=== PATIENT | male | born 1995 | race Caucasian/White ===

== ENCOUNTER 2019-04-29 08:29 | Emergency (ER) | payer SELFPAY ==
--- NOTE | 2019-04-29 08:32 | W.ED.GENAD ---
Discharge Plan Disposition Patient Disposition: HOME Condition: Good Discharge Details Chief Complaint: EyeProblem Clinical Impression: Foreign body in eye, Abrasion, corneal Primary Care Provider: Raz Navas ED Provider: Marisol Camara Home Meds and New Rx's Prescriptions: Continued ibuprofen 600 MG tablet 600 mg PO Q6H PRN (Reason: Pain) Qty: 15 RF: 0 Discharge Instructions Instructions: Erythromycin (Into the eye), Eye Foreign Body (ED) Additional Instructions: Continue with the erythromycin ointment as directed by nursing staff. Apply 1/2 inch to the right eye 4 times daily for the next 5 days. Please contact hooker laster, may try [facility] , so that you may be reevaluated in the next few days. We will send our notes to them as well. If you develop eye pain, fevers/chills, change in vision, discharge or other new/worsening symptoms please seek care urgently once again. Tetanus updated today. Referrals: Raz Navas [Primary Care Provider] - Medical Decision Making Patient is 23-year-old male presents today with chief complaint of foreign body of the right eye. 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 He reports that he immediately flushed the eye and the foreign body sensation did resolve. States that overall his pain is much improved. States that he has a mild achiness at this time. Denies any visual changes. Unknown tetanus status, patient believes the last 2 years. Does not wear any corrective lenses. Otherwise healthy. On exam, patient has some mild conjunctival injection. He appears nontoxic. Extraocular movements are intact. I do not see any abnormalities on eversion of the eyelid. Patient was numbed with tetracaine which did alleviate all of his symptoms, fluorescein was used for slit-lamp evaluation. Small area of uptake was noted at the 3 o'clock position. No foreign body was noted. Patient will be placed on erythromycin ointment. Advised to follow-up with hooker laster, and appointment was made for tomorrow morning with [facility]. He was given strict return precautions. Is been over 10 years since his last tetanus, will update this today. All of his questions and concerns were addressed and he is in agreement this plan HPI General Mode of arrival: ambulatory. Date/Time Provider Initiated Documentation: 04/29/19 08:32. Limitations to Documentation: no limitations. Information obtained by: patient and RN notes reviewed. History of Present Illness 23 year old M presents to the emergency department with the chief complaint of right eye FB, described as mild, Quality is described as aching, and is localized to the eyes (right). Patient reports no radiation. Patient started experiencing this minute(s) and it has been constant. other things that improve symptom(s), (washed immediately which relieved FB sensation) No exacerbating factors reported . Patient notes no other symptoms.. Patient did receive the following treatments prior to arrival, other (eye wash station) Related Data Home Medications Medication Instructions Recorded Confirmed ibuprofen 600 mg PO Q6H PRN #15 tablet 03/31/18 04/29/19 Previous Rx's Medication Instructions Recorded ibuprofen 600 mg PO Q6H PRN #15 tablet 03/31/18 Allergies Allergy/AdvReac Type Severity Reaction Status Date / Time No Known Allergies Allergy Unverified 04/29/19 08:38 Review of Systems Constitutional Reports as per HPI, Denies chills, Denies fatigue, Denies fever(s) and Denies headache(s) Eyes Reports as per HPI ENT Denies headache(s) Cardiovascular Reports as per HPI, Denies chest pain and Denies lightheadedness Respiratory Denies cough Integumentary/Breasts Reports as per HPI, Denies rash, Denies skin pain and Denies skin swelling Neurologic Denies headache(s) and Denies radicular pain Endocrine Denies fatigue [facility] Social History Smoking/Tobacco Use Status: Current every day Drug use: Never Do you feel safe in your relationship?: Yes Exam Const General: cooperative, healthy appearing, comfortable, no acute distress, well developed and well groomed Nutritional Appearance: average body habitus and well nourished Orientation: alert, awake and oriented x3 HENMT Head: normal to inspection, normocephalic and atraumatic Ears: hearing grossly normal bilaterally and external ears normal General nose exam: external nose normal and nares normal Face and sinus: normal facial exam and face symmetric Mouth: oral mucosae normal, lip normal and moist mucous membranes Eyes Visual Flanagan: normal visual flanagan by confrontation Alignment and Position: alignment normal Periorbital: periorbital findings normal Eyelids: eyelids normal Conjunctivae: conjunctival abnormality right conjunctival injection diffuse (mild) Cornea: corneas normal Pupils: PERRL and normal by confrontation EOM: EOM intact bilaterally Direct ophthalmoscopy: normal light reflex Resp Effort & Inspection: normal respiratory effort, able to speak in complete sentences and no respiratory distress Skin General skin exam: no rashes or lesions noted Neuro General: alert, awake and oriented x3 Cranial Nerves: CN's II-XI intact bilaterally Cognition: normal cognition Speech: speech normal Gait: normal gait Psych Appearance: grossly normal and well kempt Mental Status: mental status grossly normal Speech and Movement: speech and movement normal
[2019-04-29 08:35] VITALS: BP 106/83; PULSE 92; RESP 16; TEMP 36.6; O2SAT 98
[2019-04-29] MEDS: Fluorescein STRIPS 100/BOX 1 MG (09:00)
[2019-04-29] MEDS: Tetracaine 0.5% 4 ML BTL (09:00)
[2019-04-29] MEDS: Erythromycin Ophth Oint 3.5 GM TUBE OP (09:24)
--- NOTE | 2019-04-29 09:30 | NUR.NOTE ---
Nursing Note: Appt made for patient with [facility] for April 30 @ 3532. Stacie Garcia.
== END 2019-04-29 09:29 | disposition home or self-care (01) ==
PROVIDERS: Emergency Provider Physician Assistant; PCP Specialist/Technologist Athletic Trainer
DX: S05.01XA Injury of conjunctiva and corneal abrasion without foreign body, right eye, initial encounter (principal); T15.91XA Foreign body on external eye, part unspecified, right eye, initial encounter; Y99.0 Civilian activity done for income or pay
CPT/HCPCS: 90471; 99284; 99283

== ENCOUNTER 2019-11-01 17:15 | Outpatient (REF) | payer BC, SELFPAY ==
[2019-11-01 22:21] LABS: TSH 2.62 uIU/mL (0.36-3.74)
[2019-11-01 22:36] LABS: Vitamin D 25 Total 17.9 ng/ml (30-100)
== END 2019-11-01 17:35 ==
LOC: NCHCN 17:15
PROVIDERS: PCP Specialist/Technologist Athletic Trainer; Visit Provider Nurse Practitioner Family
DX: F41.9 Anxiety disorder, unspecified (principal)
CPT/HCPCS: 82306; 84443

== ENCOUNTER 2021-10-17 10:33 | Emergency (ER) | payer OTHER, SELFPAY ==
[2021-10-17 10:37] VITALS: BP 133/72; PULSE 79; RESP 16; TEMP 36.2; O2SAT 98
--- NOTE | 2021-10-17 10:43 | W.ED.GENAD ---
Discharge Plan Disposition Patient Disposition: HOME Condition: Improving Discharge Details Clinical Impression: Laceration of thumb Primary Care Provider: Raz Navas ED Provider: Angel Stone Home Meds and New Rx's Prescriptions: Continued ibuprofen 600 MG tablet 600 mg PO Q6H PRN (Reason: Pain) Qty: 15 RF: 0 Discharge Instructions Instructions: Laceration (ED) Additional Instructions: Procedures were recommended but declined. Wear and change antibiotic dressing daily, also wear thumb splint to avoid tearing open the laceration. [id number] Tylenol and/or Motrin as directed for discomfort. Please watch for new or worsening symptoms and return to the ER for any concerns Stand Alone Forms: Work Release Medical Decision Making 25-year-old male presents to the ER for evaluation of a right thumb laceration. Tetanus status is up-to-date. The wound was thoroughly irrigated and cleaned. No signs of foreign body. Bleeding controlled. 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 He would prefer to keep pressure on the area and wear a splint. She does understand that this may delay healing, increased scarring, and potentially increase chance for infection. As stated above the thumb was thoroughly cleaned and irrigated. Antibiotic dressing was applied and a thumb splint applied over the dressing. Patient tolerated well and has no additional questions or concerns. Standard discharge and return precautions provided This documentation was generated using OwnLocalation system, please disregard any oddities of phrase or misspellings. Medical Records Medical records reviewed: Yes I reviewed the patient's medical records. HPI General Mode of arrival: ambulatory. Date/Time Provider Initiated Documentation: 10/17/21 10:43. Limitations to Documentation: no limitations. Information obtained by: patient. 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 He reports he sustained a laceration just prior to arrival on a metal casing. Reports mild discomfort, worse with movement. Denies numbness, tingling, weakness. Denies any other injury. Denies taking any medication prior to arrival. Related Data Home Medications Medication Instructions Recorded Confirmed ibuprofen 600 mg PO Q6H PRN #15 tablet 03/31/18 10/17/21 Previous Rx's Medication Instructions Recorded ibuprofen 600 mg PO Q6H PRN #15 tablet 03/31/18 Allergies Allergy/AdvReac Type Severity Reaction Status Date / Time No Known Allergies Allergy Unverified 10/17/21 10:48 General Stated Complaint: Laceration JOSE D: 4 Review of Systems Constitutional Constitutional: Denies weakness Musculoskeletal Musculoskeletal: Denies arthralgias, Denies numbness, Denies stiffness and Denies tingling Integumentary/Breasts Skin/Breast: Denies rash Neurologic Neurologic: Denies numbness, Denies tingling and Denies weakness PFSH All Active Problems (Updated 10/17/21 @ 10:54 by KYUNG Rao) Laceration of thumb (Acute) Social History Smoking/Tobacco Use Status: Current every day Tobacco Type: cigarettes Smoking risk assessment performed?: Yes Alcohol Intake: current Alcohol Intake frequency: a few times a month Drug use: Rarely Substance use type: marijuana Do you feel safe at home: Yes Do you feel safe in your relationship?: Yes Exam Const General: cooperative, healthy appearing, comfortable and no acute distress Orientation: alert and awake [facility] Head: normal to inspection, normocephalic and atraumatic Eyes General: appearance normal, both eyes and all related structures Conjunctivae: conjunctivae normal Neck Neck: normal visual inspection, trachea midline and supple Resp Effort & Inspection: normal respiratory effort and able to speak in complete sentences Cardio Rate: regular rate Rhythm: regular rhythm Skin General skin exam: no rashes or lesions noted Neuro General: patient alert, patient awake, moves all extremities and no focal motor deficits Cognition: normal cognition Gait: normal gait Sensory Exam: no sensory deficits noted Extrem Hand/finger images: 1. Right thumb flexor aspect there is a 1.25 cm well approximated not actively bleeding laceration. Minimal discomfort to palpation. No obvious foreign body. Normal capillary refill and radial pulse. Neuro, vascular, tendon intact. Psych Appearance: grossly normal Mental Status: mental status grossly normal Course Vital Signs Vital signs: Vital Signs Temperature 36.2 C L 10/17/21 10:37 Pulse 79 10/17/21 10:37 Respiratory Rate 16 10/17/21 10:37 Blood Pressure 133/72 10/17/21 10:37 Pulse Oximetry 98 10/17/21 10:37 Temperature 36.2 C L 10/17/21 10:37 Temperature Source Temporal Artery Scan 10/17/21 10:37 Pulse 79 10/17/21 10:37 Respiratory Rate 16 10/17/21 10:37 Blood Pressure 133/72 10/17/21 10:37 Blood Pressure Position Sitting 10/17/21 10:37 Pulse Oximetry 98 10/17/21 10:37 Oxygen Delivery Method Room Air 10/17/21 10:37 Oxygen Flow Rate 0 10/17/21 10:37 Pain Level 3 10/17/21 10:37
[2021-10-17 11:00] VITALS: BP 133/72; PULSE 79; RESP 16; TEMP 36.2; O2SAT 98
== END 2021-10-17 11:00 | disposition home or self-care (01) ==
PROVIDERS: Emergency Provider Physician Assistant; PCP Specialist/Technologist Athletic Trainer
DX: S61.011A Laceration without foreign body of right thumb without damage to nail, initial encounter (principal); W26.8XXA Contact with other sharp object(s), not elsewhere classified, initial encounter; Y99.0 Civilian activity done for income or pay
CPT/HCPCS: 99282; 99283

== ENCOUNTER 2022-04-08 15:46 | Outpatient (REF) | payer BC, SELFPAY ==
[2022-04-08 18:56] LABS: HCT 42.5 % (40.0-50.0); HGB 14.4 g/dL (13.5-17.5); MCHC 33.9 % (32.0-36.0); MCV 92 fL (80-95); MPV 10.1 fL (8.0-11.0); Platelet Count 347 10^3/uL (130-400); RBC 4.64 10^6/uL (4.36-5.78); RDW-SD 40.9 fL; WBC 11.82 10^3/uL (4.4-10.8)
[2022-04-08 19:07] LABS: Bilirubin Negative (Negative); Blood Negative (Negative); Clarity Cloudy (Clear); Glucose Negative (Negative); Ketones Negative (Negative); Leukocyte Esterase Negative (Negative); Nitrite Negative (Negative); Urobilinogen 0.2 EU/dL (Up TO 0.2); pH 8.5 (5-8)
[2022-04-08 19:21] LABS: C & S Indicated? No; Crystals Many Amorphous HPF (Negative); Epithelial Cells Negative HPF (Negative); Mucus Negative (Negative); RBC Negative HPF (0-2); WBC Negative HPF (0-5)
[2022-04-08 19:28] LABS: Hemoglobin A1C 5.5 % (<5.7)
[2022-04-08 19:38] LABS: ALT 23 U/L (16-63); AST 16 U/L (15-37); Albumin 4.1 g/dL (3.4-5.0); Alkaline Phosphatase 56 U/L (46-116); Anion Gap 7.4 mmol/L (3-11); BUN 24 mg/dL (7-18); Bilirubin, Total 0.3 mg/dL (0.2-1.0); CO2 29.6 mmol/L (21.0-32.0); Calcium 8.7 mg/dL (8.5-10.1); Chloride 101 mmol/L (98-107); Glucose 90 mg/dL (74-106); Potassium 4.3 mmol/L (3.5-5.1); Sodium 138 mmol/L (136-145); TSH (W/Ref FT4) 1.47 uIU/mL (0.36-3.74); Total Protein 7.2 g/dL (6.4-8.2)
[2022-04-08 19:52] LABS: Vitamin D 25 Total 23.1 ng/mL (30-100)
== END 2022-04-08 15:47 | disposition home or self-care (01) ==
LOC: NCHCN 15:46
PROVIDERS: PCP Specialist/Technologist Athletic Trainer; Visit Provider Nurse Practitioner Family
DX: Z00.00 Encounter for general adult medical examination without abnormal findings (principal); R53.83 Other fatigue; R79.89 Other specified abnormal findings of blood chemistry; R82.998 Other abnormal findings in urine
CPT/HCPCS: 80053; 82306; 85027; 81003; 81015; 83036; 84443

== ENCOUNTER 2022-05-20 18:16 | Outpatient (REF) | payer BC, SELFPAY ==
[2022-05-20 19:52] LABS: Bilirubin Negative (Negative); Blood Trace-intact (Negative); Clarity Clear (Clear); Glucose Negative (Negative); Ketones Negative (Negative); Leukocyte Esterase Trace (Negative); Nitrite Negative (Negative); Urobilinogen 0.2 EU/dL (Up TO 0.2)
[2022-05-20 20:06] LABS: Bacteria Negative HPF (Negative); C & S Indicated? Yes; Crystals Negative HPF (Negative); Epithelial Cells Negative HPF (Negative); Mucus Negative (Negative); RBC 0-2 HPF (0-2)
[2022-05-22 13:39] LABS: Chlamydia Result Negative (Negative); GC Result Negative (Negative)
== END 2022-05-20 18:17 | disposition home or self-care (01) ==
LOC: NCHCN 18:16
PROVIDERS: PCP Specialist/Technologist Athletic Trainer; Visit Provider Nurse Practitioner Family
DX: R82.998 Other abnormal findings in urine (principal); F41.9 Anxiety disorder, unspecified; Z86.59 Personal history of other mental and behavioral disorders
CPT/HCPCS: 87491; 87591; 81003; 81015; 87086

== ENCOUNTER 2022-09-12 16:45 | Outpatient (REF) | payer BC, SELFPAY ==
[2022-09-14 10:51] LABS: COVID-19 RT-PCR UVMMC Result Negative (Negative)
== END 2022-09-12 16:46 | disposition home or self-care (01) ==
LOC: LBN 16:45
PROVIDERS: PCP Nurse Practitioner Family; Visit Provider Physician Assistant Medical
DX: Z20.822 Contact with and (suspected) exposure to COVID-19 (principal); R05.8 Other specified cough
CPT/HCPCS: U0003

== ENCOUNTER 2022-12-03 04:55 | Emergency (ER) | payer BC, SELFPAY ==
[2022-12-03 04:57] VITALS: BP 143/90; PULSE 95; RESP 24; TEMP 36.3; O2SAT 98
--- NOTE | 2022-12-03 05:00 | DI.CT_ITS ---
Exam(s) CT ABDOMEN PELVIS W EXAM: CT ABDOMEN PELVIS W CLINICAL HISTORY: lower abdominal pain TECHNIQUE: Imaging Protocol: Axial computed tomography images with coronal and sagittal reformatted images were created and reviewed CONTRAST MATERIAL: Intravenous: Omnipaque 350 Contrast volume:100 mL Oral: No COMPARISON: CT CHEST WITH CONTRAST from 05/13/2015 FINDINGS: ABDOMEN: Lung Bases: Normal where visualized. Liver: Normal density. No measurable mass. There are few tiny hypodensities in the liver. They are t oo small for further characterization but likely reflect small cysts. Portal, Superior Mesenteric, and Splenic Veins: Unremarkable. Gallbladder and Biliary Tract: No radiodense calculus or dilation. Pancreas: Normal density, no abnormal calcifications or inflammatory process. Spleen: Normal. Adrenals: No masses seen. Kidneys: Normal size, contour and axis. No radiodense stones or obstructive uropathy. No masses seen. Abdominal Aorta: Abdominal portion non-dilated. Bowel: No obstruction or significant bowel wall thickening. The colon is underdistended limiting celso luation. Appendix is unremarkable. There is an enteroentero intussusception in the left pelvis (seri es 5, images 629 through 695.) Peritoneal Cavity: No ascites, collection or mesenteric inflammatory response. No free air. Lymph Nodes: Within normal limits. Bones: Within normal limits for the patient's age. Soft Tissues: Unremarkable. PELVIS: Bladder: Symmetric distention, no gross wall thickening. Reproductive Organs: Unremarkable as visualized. Lymph Nodes: Within normal limits. Bones: Within normal limits for the patient's age. IMPRESSION: 1. Enteroentero intussusception in the left lower quadrant without evidence of obstruction. 2. Mild wall thickening seen in the distal small bowel likely due to underdistention. RADIATION DOSE DELIVERED: 849.63mGy.cm Total DLP DATA REPOSITORY: All CT scans at this facility are submitted to the National Radiology Data Registry (NRDR) Dose Index Registry (DIR) with the [employer] (A[employer]). RADIATION OPTIMIZATION: All CT scans at this facility use at least one of these dose optimization te chniques: automated exposure control; mA and/or kV adjustment per patient size (includes targeted exa ms where dose is matched to clinical indication); or iterative reconstruction.
--- NOTE | 2022-12-03 05:12 | ED.GENADUL_ITS ---
Discharge Plan Disposition Patient Disposition: Home Condition: Stable Discharge Details Clinical Impression: Abdominal pain, Intussusception Primary Care Provider: Flori Christopher ED Provider: Len Wylie Home Meds and New Rx's Prescriptions: Continued cholecalciferol (vitamin D3) 25 mcg (1,000 unit) capsule 25 mcg PO DAILY escitalopram oxalate 5 mg tablet 10 mg PO DAILY ibuprofen 600 MG tablet 600 mg PO Q6H PRN (Reason: Pain) Qty: 15 0RF Discharge Instructions Additional Instructions: Your cat scan showed you have a small intussusception where part of the bowel goes into the other part of the bowel. This usually resolves on it's own call surgery to arrange a follow up appointment if you have severe worsening pain return to the emergency department or persistent vomiting Stand Alone Forms: Work Release Medical Decision Making 26 yo male with no chronic medical problems and denies prior abdominal surgeries comes in with chief complaint of lower abdominal pain intermittently the last week that has slowly worsened. Denies fevers, chills, chest pain, n/v. Denies having pain like this in the past. He arrives stable speaking clearly in no distress. He has a soft nondistended abdomen, no upper abdominal tenderness, is tender without guarding in the llq and rlq. Normal testes, no swelling or tenderness. Given location of pain will obtain cbc, cmp, lipase and ct to evaluate for possible diverticulitis vs appendicitis. pt stable, minimal tenderness in the llq, no guarding. CT shows small bowel to small bowel intussusception in the llq/pelvis without obstruction. Will consult surgery for recs on management spoke with Dr. Johnson who advised if patient is stable can follow up with them in the office this week and return if worsening to the ED. Discussed with pt and he is comfortable and in agreement with this plan. Return precautions given. no abdominal tenderness on final abdominal exam. Differential Diagnosis Differential Diagnosis: diverticulitis, colitis Imaging Data Radiologic Study: Attestation: I personally reviewed and interpreted this imaging study as follows: Imaging: CT Scan Radiologist's impression: IMPRESSION: 1. Small bowel to small bowel intussusception in the left lower quadrant/pelvis without obstruction. 2. Minimal mucosal thickening of the under distended distal large bowel, probably due to under distention . Lab Data Lab results reviewed: Yes I reviewed the patient's lab results. HPI General Mode of arrival: ambulatory . Date/Time Provider Initiated Documentation: 12/03/22 05:05 . Limitations to Documentation: no limitations . Information obtained by: patient . History of Present Illness 26 year old M presents to the emergency department with the chief complaint of lower abdominal pain, described as moderate, with intensity rated at 7. Quality is described as sharp, and is localized to the abdomen. Patient reports no radiation. Patient started experiencing this week(s) (1) and it has been intermittent. No relieving factors improve symptom(s), No exacerbating factors reported . Patient notes denies fever/chills and nausea/vomiting. Patient did receive the following treatments prior to arrival, none Related Data Home Medications Medication Instructions Recorded Confirmed ibuprofen 600 mg tablet 600 mg PO Q6H PRN Pain ##15 03/31/18 12/03/22 cholecalciferol (vitamin D3) 25 25 mcg PO DAILY 06/12/22 12/03/22 mcg (1,000 unit) capsule escitalopram oxalate 5 mg tablet 10 mg PO DAILY 06/12/22 12/03/22 Previous Rx's Medication Instructions Recorded ibuprofen 600 mg tablet 600 mg PO Q6H PRN Pain ##15 03/31/18 Allergies Allergy/AdvReac Type Severity Reaction Status Date / Time sertraline Allergy Verified 12/03/22 05:04 General Stated Complaint: Abd Prob JOSE D: 3 Review of Systems All systems reviewed & are unremarkable except as noted in HPI and below Constitutional Constitutional: Denies chills, Denies fever(s) and Denies weakness Cardiovascular Cardiovascular: Denies chest pain and Denies dyspnea Respiratory Respiratory: Denies cough and Denies dyspnea Gastrointestinal Gastrointestinal: Denies nausea and Denies vomiting Genitourinary Genitourinary: Denies dysuria Integumentary/Breasts Skin/Breast: Denies rash Neurologic Neurologic: Denies weakness PFSH All Active Problems (Updated 12/03/22 @ 07:29 by Len Wylie MD) Abdominal pain (Acute) Intussusception (Acute) Anxiety (Chronic) Eustachian tube dysfunction (Acute) Tobacco abuse (Acute) Testicular disorder (Acute) Medical History (Updated 12/03/22 @ 07:29 by Len Wylie MD) Depression Family history of testicular cancer Fatigue Social History Smoking/Tobacco Use Status: Current every day Tobacco Type: cigarettes Smoking risk assessment performed?: Yes Alcohol Intake: current Alcohol Intake frequency: a few times a month Drug use: Rarely Substance use type: marijuana Do you feel safe at home: Yes Do you feel safe in your relationship?: Yes Exam Const General: no acute distress Orientation: alert HENMT Head: normal to inspection Ears: external ears normal General nose exam: external nose normal Mouth: moist mucous membranes Eyes General: appearance normal, both eyes and all related structures Neck Neck: normal visual inspection Resp Effort & Inspection: normal respiratory effort and able to speak in complete sentences Cardio Rate: regular rate GI Palpation: soft and tender Meatus: meatus normal Testes: normal, testicular lie normal, not enlarged, no epidiymal tenderness, no testicular swelling, no testicular tenderness and normal testicular lie Skin General skin exam: no rashes or lesions noted Neuro General: patient alert and patient oriented x3 Extrem General: normal to inspection Psych Mental Status: mental status grossly normal Course Vital Signs Vital signs: Vital Signs Temperature 36.3 C L 12/03/22 04:57 Pulse 95 H 12/03/22 04:57 Respiratory Rate 24 12/03/22 04:57 Blood Pressure 143/90 H 12/03/22 04:57 Pulse Oximetry 98 12/03/22 04:57 Temperature 36.3 C L 12/03/22 04:57 Temperature Source Temporal Artery Scan 12/03/22 04:57 Pulse 95 H 12/03/22 04:57 Respiratory Rate 24 12/03/22 04:57 Respiratory Effort Normal 12/03/22 05:01 Blood Pressure 143/90 H 12/03/22 04:57 Blood Pressure Position Sitting 12/03/22 04:57 Pulse Oximetry 98 12/03/22 04:57 Oxygen Delivery Method Room Air 12/03/22 04:57 Oxygen Flow Rate 0 12/03/22 04:57 Pain Level 6 12/03/22 04:57 PAWSS Have you Been Recently Intoxicated or Drunk Within the Last 30 days?: No Have you Ever Experienced Previous Episodes of Alcohol Withdrawal?: No Have you ever Experienced Withdrawal Seizures?: No Have you ever Experienced Delirium Tremens(DT)s?: No Have you ever undergone Alcohol Rehabilitation Treatment (i.e, inpt ot outpatient treatment programs)?: No Have you ever Experienced Blackouts?: No Have you ever Combined Alcohol with other Downers within the last 90 days?: No Have you ever Combined Alcohol with any other Substance of Abuse during the last 90 days?: No Positive Blood Alcohol level on Presentation? [PCS.BAL]: No Evidence of Increased Autonomic Activity (i.e. HR>120, tremor, sweating, agitation, nausea)?: No Result: 0
[2022-12-03] MEDS: Ketorolac 15 MG/ML VIAL IVP (05:13)
[2022-12-03] MEDS: Normal Saline 1,000 ML 1000 ML IV (05:14)
[2022-12-03 05:20] LABS: Abs Immature Grans 0.04 10^3/uL (0.0-0.06); Absolute Lymphocyte Count 3.57 10^3/uL (1.2-3.4); Absolute Monocyte Count 0.97 10^3/uL (0.1-0.8); Basophils % 0.4; Eosinophils % 0.9; HCT 47.6 % (40.0-50.0); HGB 15.8 g/dL (13.5-17.5); Immature Grans % 0.3; Lymphocytes % 25.7; MCHC 33.2 % (32.0-36.0); MCV 91 fL (80-95); MPV 9.3 fL (8.0-11.0); Neutrophils % 65.7; Platelet Count 313 10^3/uL (130-400); RBC 5.26 10^6/uL (4.36-5.78); RDW 13.2 % (11.8-14.1); RDW-SD 44.4 fL; WBC 13.89 10^3/uL (4.4-10.8)
[2022-12-03] MEDS: Omnipaque 350 MG/ML 100 ML BTL IJ (05:23)
[2022-12-03] MEDS: Normal Saline Flush 10 ML SYR IVP (05:24)
[2022-12-03] MEDS: Normal Saline - Diluent 50 ML VIAL IJ (05:24)
[2022-12-03 05:31] LABS: Lipase 32 U/L (16-77); Magnesium 1.9 mg/dL (1.8-2.4)
[2022-12-03 05:32] LABS: Absolute Basophil Count 0.06 10^3/uL (0.0-0.2); Absolute Eosinophil Count 0.13 10^3/uL (0.0-0.7); Absolute Neutrophil Count 9.13 10^3/uL (1.2-6.7)
[2022-12-03 05:37] LABS: ALT 23 U/L (16-63); AST 18 U/L (15-37); Albumin 4.4 g/dL (3.4-5.0); Alkaline Phosphatase 61 U/L (46-116); Anion Gap 7.1 mmol/L (3-11); BUN 13 mg/dL (7-18); Bilirubin, Total 0.4 mg/dL (0.2-1.0); CO2 29.9 mmol/L (21.0-32.0); CREATININE 0.9 mg/dL (0.70-1.30); Chloride 103 mmol/L (98-107); Estimated GFR 120.05 (mL/min/1.73m2); Glucose 100 mg/dL (74-106); Potassium 4.3 mmol/L (3.5-5.1); Sodium 140 mmol/L (136-145); Total Protein 7.4 g/dL (6.4-8.2)
--- NOTE | 2022-12-03 06:09 | DI.VRAD_ITS ---
PROCEDURE INFORMATION: Exam: CT Abdomen And Pelvis With Contrast Exam date and time: 12/03/2022 5:26 AM Age: 26 years old Clinical indication: Abdominal pain; Localized; Patient HX: Lower abd pain, cramping x1 week; Additional info: HX of L testicular cyst TECHNIQUE: Imaging protocol: Computed tomography of the abdomen and pelvis with contrast. Radiation optimization: All CT scans at this facility use at least one of these dose optimization techniques: automated exposure control; mA and/or kV adjustment per patient size (includes targeted exams where dose is matched to clinical indication); or iterative reconstruction. Contrast material: OMNIPAQUE 350; Contrast volume: 100 ml; Contrast route: INTRAVENOUS (IV); COMPARISON: US SCROTUM 06/07/2022 8:38 AM FINDINGS: Liver: Normal. No mass. Gallbladder and bile ducts: Normal. No calcified stones. No ductal dilation. Pancreas: Normal. No ductal dilation. Spleen: Normal. No splenomegaly. Adrenal glands: Normal. No mass. Kidneys and ureters: Normal. No hydronephrosis. Stomach and bowel: Minimal mucosal thickening of under distended distal large bowel from descending colon to the rectum, likely due to under distention. No mesenteric stranding. There is no evidence of bowel obstruction. There is a small bowel to small bowel intussusception noted in the left lower quadrant/pelvis open (67 series 4, 41 series 6). Appendix: No evidence of appendicitis. Intraperitoneal space: No free air. Vasculature: Unremarkable. No abdominal aortic aneurysm. Lymph nodes: Unremarkable. No enlarged lymph nodes. Urinary bladder: Unremarkable as visualized. Reproductive: Unremarkable as visualized. Bones/joints: Unremarkable. No acute fracture. Soft tissues: Unremarkable. IMPRESSION: 1. Small bowel to small bowel intussusception in the left lower quadrant/pelvis without obstruction. 2. Minimal mucosal thickening of the under distended distal large bowel, probably due to under distention . Dictated and Authenticated by: Dom Morales MD. Ordering:LILLIAN Harrington MD
[2022-12-03 06:21] LABS: Bilirubin Negative (Negative); Blood Trace-intact (Negative); Clarity Clear (Clear); Glucose Negative (Negative); Ketones Negative (Negative); Leukocyte Esterase Negative (Negative); Nitrite Negative (Negative); Specific Gravity 1.015 (1.005-1.025); Urobilinogen 0.2 mg/dL (Up to 0.2)
[2022-12-03 06:30] LABS: Bacteria Rare HPF (Negative); C & S Indicated? No; Casts Negative LPF (Negative); Crystals Negative HPF (Negative); Epithelial Cells Rare HPF (Negative); Mucus Trace (Negative); WBC 0-2 HPF (0-5)
[2022-12-03 07:56] VITALS: BP 125/69; PULSE 78; RESP 16; TEMP 36.9; O2SAT 100
--- NOTE | 2022-12-04 16:24 | W.ED.FU ---
Follow Up Plan: Dr. Barajas noted this morning that Dr. Johnson, on-call surgeon, called to request that we reach out to the patient and have him come back if he was continued on symptoms for repeat imaging. 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 Voicemail is full. I called again later in the day and was able to connect with him. I explained concerns of Dr. Johnson and recommended he come back to the [facility] department for reevaluation and reimaging. He noted that he was feeling better and would consider coming back. I again reiterated recommendation and he noted he would likely return.
== END 2022-12-03 07:59 | disposition home or self-care (01) ==
PROVIDERS: Emergency Provider Emergency Medicine; PCP Nurse Practitioner Family
DX: K56.1 Intussusception (principal)
CPT/HCPCS: 80053; 83690; 96361; 96374; 99285; 74177; 81003; 81015; 83735; 85025; 99284; J1885; J3490

== ENCOUNTER 2022-12-05 05:33 | Emergency (ER) | payer BC, SELFPAY ==
[2022-12-05 05:39] VITALS: BP 120/77; PULSE 78; RESP 18; TEMP 36.4; O2SAT 100
--- NOTE | 2022-12-05 06:24 | ED.GENADUL_ITS ---
Discharge Plan Discharge Details Chief Complaint: Abd Prob Primary Care Provider: Flori Christopher ED Provider: Caitlin Ayala Home Meds and New Rx's Prescriptions: No Action cholecalciferol (vitamin D3) 25 mcg (1,000 unit) capsule 25 mcg PO DAILY escitalopram oxalate 5 mg tablet 10 mg PO DAILY ibuprofen 600 MG tablet 600 mg PO Q6H PRN (Reason: Pain) Qty: 15 0RF Medical Decision Making 0545 -- 26-year-old male presents for reevaluation and repeat CT imaging after seen here 2 days ago for lower abdominal pain and diagnosed with intussusception and discharged home. Patient was called at home yesterday and told to return for repeat CT imaging. Patient appears comfortable and nontoxic. His vitals are within normal limits. His abdomen is soft and nontender. He states he also feels hungry. As he has had return of pain, will proceed with CT imaging of abdomen and pelvis with oral and IV contrast per Dr. Johnson's recommendations yesterday. Will obtain screening labs. He declines any medication for nausea or pain. 0730 -- Labs reviewed. Normal white blood cell count. Normal electrolytes. Normal lipase and LFTs. Patient drinking contrast and tolerating it well. Pain minimal and declines any medication at this time. 0800 -- Case endorsed to Dr. Esquivel to follow-up on imaging and discuss with general surgery. Medical Records Medical records reviewed: Yes I reviewed the patient's medical records. Medical records narrative: 12/03/22?CT ABDOMEN ? PELVIS W CLINICAL HISTORY: ? lower abdominal pain ? TECHNIQUE:? Imaging Protocol: Axial computed tomography images with coronal and sagittal reformatted images were created and reviewed CONTRAST MATERIAL:? Intravenous: Omnipaque 350 Contrast volume:100 mL Oral: No COMPARISON:? CT CHEST WITH CONTRAST from 05/13/2015 FINDINGS: ABDOMEN: Lung Bases: Normal where visualized. Liver: Normal density. No measurable mass. There are few tiny hypodensities in the liver.? They are too small for further characterization but likely reflect small cysts. Portal, Superior Mesenteric, and Splenic Veins: Unremarkable.? Gallbladder and Biliary Tract: No radiodense calculus or dilation. Pancreas: Normal density, no abnormal calcifications or inflammatory process. Spleen: Normal. Adrenals: No masses seen. Kidneys: Normal size, contour and axis. No radiodense stones or obstructive uropathy. No masses seen. Abdominal Aorta: Abdominal portion non-dilated. Bowel: No obstruction or significant bowel wall thickening.? The colon is underdistended limiting evaluation.? Appendix is unremarkable. There is an enteroentero intussusception in the left pelvis (series 5, images 629 through 695.) Peritoneal Cavity: No ascites, collection or mesenteric inflammatory response.? No free air. Lymph Nodes: Within normal limits. Bones: Within normal limits for the patient's age.? Soft Tissues: Unremarkable. PELVIS: Bladder: Symmetric distention, no gross wall thickening. Reproductive Organs: Unremarkable as visualized. Lymph Nodes: Within normal limits. Bones: Within normal limits for the patient's age.? IMPRESSION: 1. Enteroentero intussusception in the left lower quadrant without evidence of obstruction. 2. Mild wall thickening seen in the distal small bowel likely due to underdistention.? Lab Data Lab results reviewed: Yes I reviewed the patient's lab results. Labs: Laboratory Tests Range/Units 12/05/22 12/05/22 05:45 05:45 WBC (4.4-10.8) 10^3/uL 8.62 RBC (4.36-5.78) 10^6/uL 5.25 Hgb (13.5-17.5) g/dL 15.7 Hct (40.0-50.0) % 46.9 MCV (80-95) fL 89 MCH (27.0-33.0) pg 29.9 MCHC (32.0-36.0) % 33.5 RDW (11.8-14.1) % 13.0 Plt Count (130-400) 10^3/uL 301 MPV (8.0-11.0) fL 9.7 Immature Gran % 0.1 Neutrophils % 53.7 Lymphocytes % 36.4 Monocytes % 7.2 Eosinophils % 2.1 Basophils % 0.5 Nucleated RBC % (0.0-0.3) % 0.0 Absolute Neutrophils (1.2-6.7) 10^3/uL 4.63 Absolute Lymphocytes (1.2-3.4) 10^3/uL 3.14 Absolute Monocytes (0.1-0.8) 10^3/uL 0.62 Absolute Eosinophils (0.0-0.7) 10^3/uL 0.18 Absolute Basophils (0.0-0.2) 10^3/uL 0.04 Sodium (136-145) mmol/L 140 Potassium (3.5-5.1) mmol/L 4.4 Chloride (98-107) mmol/L 103 Carbon Dioxide (21.0-32.0) mmol/L 30.9 Anion Gap (3-11) mmol/L 6.1 BUN (7-18) mg/dL 10 Creatinine (0.70-1.30) mg/dL 1.0 Est GFR (CKD-EPI 2020) (mL/min/1.73m2) 105.79 Glucose (74-106) mg/dL 105 Calcium (8.5-10.1) mg/dL 9.3 Total Bilirubin (0.2-1.0) mg/dL 0.2 AST (15-37) U/L 15 ALT (16-63) U/L 22 Alkaline Phosphatase (46-116) U/L 60 Total Protein (6.4-8.2) g/dL 7.6 Albumin (3.4-5.0) g/dL 4.3 Lipase (16-77) U/L 31 HPI General Mode of arrival: ambulatory . Date/Time Provider Initiated Documentation: 12/05/22 05:44 . Limitations to Documentation: no limitations . Information obtained by: patient . HPI Narrative: Pt is a 26yo M who presents to the ED with complaint of lower abdominal pain for the past week, stating it had improved and then returned this morning. Patient states the pain has been intermittent, mostly occurring between the hours of 2 and 8 AM. He states it feels crampy and is 2/10 at present but 8/10 at its worst. He has taken Tylenol for pain without relief. Patient admits to occasional nausea but denies any vomiting. Patient states he changed his diet a few weeks ago to improve his nutrition and had noted an improvement in his bowel movements from diarrhea to more formed brown stools. Patient states for the past week he has changed back to loose brown stools. Patient denies any known fever, urinary symptoms or rectal bleeding. Patient was seen here 2 days ago for the same complaint and had a CT which showed a possible intussusception. He was originally advised to return if worse but then he was called at home yesterday evening and told to return for reevaluation and repeat CT imaging with oral and IV contrast.. Related Data Home Medications Medication Instructions Recorded Confirmed ibuprofen 600 mg tablet 600 mg PO Q6H PRN Pain ##15 03/31/18 12/05/22 cholecalciferol (vitamin D3) 25 25 mcg PO DAILY 06/12/22 12/05/22 mcg (1,000 unit) capsule escitalopram oxalate 5 mg tablet 10 mg PO DAILY 06/12/22 12/05/22 Previous Rx's Medication Instructions Recorded ibuprofen 600 mg tablet 600 mg PO Q6H PRN Pain ##15 03/31/18 Allergies Allergy/AdvReac Type Severity Reaction Status Date / Time sertraline Allergy Verified 12/03/22 05:04 General Stated Complaint: Abd Prob JOSE D: 3 Review of Systems All systems reviewed & are unremarkable except as noted in HPI and below Constitutional Constitutional: Reports as per HPI, Denies chills and Denies fever(s) Eyes Eyes: Denies blurry vision ENT Ears, Nose, Mouth, and Throat: Denies dizziness, Denies sore throat and Denies throat swelling Cardiovascular Cardiovascular: Denies chest pain and Denies dyspnea Respiratory Respiratory: Denies cough and Denies dyspnea Gastrointestinal Gastrointestinal: Reports abdominal pain, Reports diarrhea and Denies vomiting Genitourinary Genitourinary: Denies hematuria and Denies dysuria Musculoskeletal Musculoskeletal: Denies back pain and Denies numbness Integumentary/Breasts Skin/Breast: Denies lesions and Denies rash Neurologic Neurologic: Denies dizziness, Denies localized weakness and Denies numbness Allergic/Immunologic Allergic/Immunologic: Denies throat swelling PFSH All Active Problems (Updated 12/05/22 @ 06:45 by Caitlin Ayala DO) Abdominal pain (Acute) Intussusception (Acute) Eustachian tube dysfunction (Acute) Tobacco abuse (Acute) Testicular disorder (Acute) Medical History (Updated 12/05/22 @ 06:45 by Caitlin Ayala DO) Anxiety Depression Family history of testicular cancer Surgical History (Updated 12/05/22 @ 06:45 by Caitlin Ayala DO) No significant past surgical history Social History Smoking/Tobacco Use Status: Current every day Tobacco Type: cigarettes Smoking risk assessment performed?: Yes Alcohol Intake: current Alcohol Intake frequency: a few times a month Drug use: Daily Substance use type: marijuana Do you feel safe at home: Yes Do you feel safe in your relationship?: Yes Exam Const General: cooperative and no acute distress Orientation: alert, awake and oriented x3 HENMT Head: normal to inspection Face and sinus: normal facial exam Eyes General: appearance normal, both eyes and all related structures Pupils: PERRL EOM: EOM intact bilaterally Neck Neck: normal visual inspection and No submandibular swelling Lymphatic: no lymphadenopathy noted Chest Chest: normal inspection of the chest and no tenderness Resp Effort & Inspection: normal respiratory effort and able to speak in complete sentences Auscultation: clear to auscultation bilaterally Cardio Rate: regular rate Rhythm: regular rhythm GI Inspection: normal to inspection Palpation: soft, not firm, not rigid and nontender Auscultation: hypoactive bowel sounds Male General Exam: Yes normal external exam Back/Spine/Pelvis Thoracic/Lumbar Spine: thoracic and lumbar spine normal to inspection Pelvis: no pain with anterior-posterior compression Skin General skin exam: no rashes or lesions noted Neuro General: patient alert, patient awake and patient oriented x3 Cognition: normal cognition Speech: speech normal Motor: muscle tone normal throughout Sensory Exam: no sensory deficits noted Extrem General: normal to inspection, full ROM, capillary refill normal, no calf tenderness bilaterally and no edema Psych Appearance: grossly normal Mental Status: mental status grossly normal Speech and Movement: speech and movement normal Affect: normal affect Course Vital Signs Vital signs: Vital Signs Temperature 97.5 F L 12/05/22 05:39 Pulse 78 12/05/22 05:39 Respiratory Rate 18 12/05/22 05:39 Blood Pressure 120/77 12/05/22 05:39 Pulse Oximetry 100 12/05/22 05:39 Temperature 97.5 F L 12/05/22 05:39 Temperature Source Oral 12/05/22 05:39 Pulse 78 12/05/22 05:39 Respiratory Rate 18 12/05/22 05:39 Respiratory Effort Normal 12/05/22 05:42 Blood Pressure 120/77 12/05/22 05:39 Pulse Oximetry 100 12/05/22 05:39 Oxygen Delivery Method Room Air 12/05/22 05:39 Oxygen Flow Rate 0 12/05/22 05:39 Pain Level 5 12/05/22 05:42
--- NOTE | 2022-12-05 06:30 | DI.CT_ITS ---
Exam(s) CT ABDOMEN PELVIS W EXAM: CT ABDOMEN PELVIS W CLINICAL HISTORY: lower abd pain, diarrhea TECHNIQUE: Imaging Protocol: Axial computed tomography images with coronal and sagittal reformatted images were created and reviewed CONTRAST MATERIAL: Intravenous: Omnipaque 350 Contrast volume:100 mL Oral: Yes COMPARISON: CT CT ABDOMEN PELVIS W from 12/03/2022 FINDINGS: ABDOMEN: Lung Bases: Normal where visualized. Liver: Normal density. There again seen a few tiny hypodensities in the liver. They are too small fo r further characterization but likely reflect small cysts. No suspicious hepatic masses are seen. Portal, Superior Mesenteric, and Splenic Veins: Unremarkable. Gallbladder and Biliary Tract: No radiodense calculus or dilation. Pancreas: Normal density, no abnormal calcifications or inflammatory process. Spleen: Normal. Adrenals: No masses seen. Kidneys: Normal size, contour and axis. No radiodense stones or obstructive uropathy. No masses seen. Abdominal Aorta: Abdominal portion non-dilated. Bowel: Note is made of a small bowel to small bowel intussusception in the left upper quadrant. Ther e is associated mild bowel wall thickening. There is no evidence of obstruction. The oral contrast passes beyond the intussusception and is seen all the way in the rectum. Appendix is unremarkable. Peritoneal Cavity: No ascites, collection or mesenteric inflammatory response. No free air. Lymph Nodes: Within normal limits. Bones: Within normal limits for the patient's age. Soft Tissues: Unremarkable. PELVIS: Bladder: Symmetric distention, no gross wall thickening. Reproductive Organs: Unremarkable as visualized. Lymph Nodes: Within normal limits. Bones: Within normal limits for the patient's age. IMPRESSION: 1. There is a nonobstructing left upper quadrant small bowel small bowel intussusception present. 2. Otherwise unremarkable CT scan of the abdomen and pelvis. 3. Findings were discussed with Dr. Esquivel at 9:06 a.m. on 12/05/2022. RADIATION DOSE DELIVERED: 717.47mGy.cm Total DLP DATA REPOSITORY: All CT scans at this facility are submitted to the National Radiology Data Registry (NRDR) Dose Index Registry (DIR) with the [employer] (A[employer]). RADIATION OPTIMIZATION: All CT scans at this facility use at least one of these dose optimization te chniques: automated exposure control; mA and/or kV adjustment per patient size (includes targeted exa ms where dose is matched to clinical indication); or iterative reconstruction.
[2022-12-05 06:51] LABS: Abs Immature Grans 0.01 10^3/uL (0.0-0.06); Absolute Basophil Count 0.04 10^3/uL (0.0-0.2); Absolute Eosinophil Count 0.18 10^3/uL (0.0-0.7); Absolute Lymphocyte Count 3.14 10^3/uL (1.2-3.4); Absolute Monocyte Count 0.62 10^3/uL (0.1-0.8); Absolute Neutrophil Count 4.63 10^3/uL (1.2-6.7); Basophils % 0.5; Eosinophils % 2.1; HCT 46.9 % (40.0-50.0); HGB 15.7 g/dL (13.5-17.5); Immature Grans % 0.1; Lymphocytes % 36.4; MCH 29.9 pg (27.0-33.0); MCHC 33.5 % (32.0-36.0); MCV 89 fL (80-95); MPV 9.7 fL (8.0-11.0); Monocytes % 7.2; Neutrophils % 53.7; Platelet Count 301 10^3/uL (130-400); RBC 5.25 10^6/uL (4.36-5.78); RDW-SD 42.6 fL; WBC 8.62 10^3/uL (4.4-10.8)
[2022-12-05] MEDS: Normal Saline 1,000 ML 1000 ML IV (06:51)
[2022-12-05 07:06] LABS: ALT 22 U/L (16-63); AST 15 U/L (15-37); Albumin 4.3 g/dL (3.4-5.0); Alkaline Phosphatase 60 U/L (46-116); Anion Gap 6.1 mmol/L (3-11); BUN 10 mg/dL (7-18); Bilirubin, Total 0.2 mg/dL (0.2-1.0); CO2 30.9 mmol/L (21.0-32.0); Calcium 9.3 mg/dL (8.5-10.1); Chloride 103 mmol/L (98-107); Estimated GFR 105.79 (mL/min/1.73m2); Glucose 105 mg/dL (74-106); Lipase 31 U/L (16-77); Potassium 4.4 mmol/L (3.5-5.1); Sodium 140 mmol/L (136-145); Total Protein 7.6 g/dL (6.4-8.2)
[2022-12-05] MEDS: Omnipaque 350 MG/ML 50 ML BTL PO (07:10)
--- NOTE | 2022-12-05 08:30 | NUR.NOTE ---
pt appears comfortable laying on stretcher using cell phone. pt has no complaints at this time. awaiting CT.
[2022-12-05] MEDS: Normal Saline - Diluent 50 ML VIAL IJ (08:42)
[2022-12-05] MEDS: Breeza Beverage 473 ML BTL PO ×2 (08:42→08:44)
[2022-12-05] MEDS: Omnipaque 350 MG/ML 500 ML BTL-Imaging package IJ (08:43)
--- NOTE | 2022-12-05 08:51 | W.EDPROG ---
Date of service: 12/05/22 Time of Service: 10:15 Medical Decision Making Care signed out by Dr. Ayala, please see her documentation regarding initial ED presentation course. Plan at signout is to follow-up on CT of the abdomen pelvis. CT of the abdomen pelvis was interpreted by radiology:1. There is a nonobstructing left upper quadrant small bowel small bowel intussusception present. 2. Otherwise unremarkable CT scan of the abdomen and pelvis. 3. Findings were discussed with Dr. Esquivel at 9:06 a.m. on 12/05/2022. I consulted on-call general surgeon, Dr. Rai. Evaluated the patient and recommends discharge with outpatient follow-up on 12/11/2022 at 215. All results and discharge plan discussed with the patient. Usual customary discharge instructions were reviewed. Sign Out Sign Out Data: Sign Out Comment: Lower abdominal pain and diarrhea for the past week. Was seen here on 12/03 and found to have intussusception and told to return for repeat CT abdomen and pelvis with oral and IV contrast. Patient states his pain did worsen this morning but has now improved. Follow-up on CT imaging and discuss with surgery. Last updated by Caitlin Ayala DO at 12/05/22 08:06 Discharge Plan Disposition Patient Disposition: Home Condition: Stable Discharge Details Clinical Impression: Intussusception Primary Care Provider: Flori Christopher ED Provider: Odilon Esquivel Home Meds and New Rx's Prescriptions: Continued cholecalciferol (vitamin D3) 25 mcg (1,000 unit) capsule 25 mcg PO DAILY escitalopram oxalate 5 mg tablet 10 mg PO DAILY ibuprofen 600 MG tablet 600 mg PO Q6H PRN (Reason: Pain) Qty: 15 0RF Discharge Instructions Additional Instructions: Please contact your primary care physician to arrange follow-up. Please follow-up with general surgery on 12/11/2022 at 2:15. Return to the ER immediately for any worsening or new concerning symptoms. Referrals: Avtar Rai MD [ [facility] STAFF PHYSICIAN] -
--- NOTE | 2022-12-05 09:58 | W.SURGCON ---
Date of service: 12/05/22 Time of Service: 09:58 Assessment and Plan Assessment and plan (1) Intussusception: Status: Acute Assessment and plan: I talked with Zachariah for a long time about the natural history of intussusception, both pathologic and benign. Certainly, there is no signs of obstruction on this CAT scan. Additionally, it very much appears that the intussusception captured on today's images distinct and separate from the intussusception captured on his previous CT scan. In that regards, I think he is having intermittent intussusception probably from some enteritis. I think the likelihood of a pathologic lead point (cancer) is extremely low in this situation. Most importantly, his symptoms overall have been improving. I think it is reasonable to discharge him home with good instructions. I am happy to see him in the office in close follow-up to ensure resolution of his symptoms. History of Present Illness History of Present Illness Chief Complaint: Crampy abdominal pain Narrative: Zachariah is a 26-year-old male who initially presented to the emergency department about 2 nights ago. He came after about 1 week of crampy lower abdominal pain. He says he noticed it after changing his diet in an effort to eat healthier. He tells me he has had a longstanding history of daily diarrhea. Since changing his diet, he noticed sharp, crampy, intermittent pain mostly in the suprapubic region. It would tend to wax and wane, with exacerbations lasting 10 minutes to half an hour. It limited his ability to work. He denied any nausea or vomiting. At that time, he came to the emergency department and he underwent a noncontrast CAT scan of the abdomen and pelvis that demonstrated a short segment intussusception. His symptoms had resolved, and he went home. He started to feel better over the past 48 hours, but he did have an episode of pain around 3 AM this morning. He underwent another CAT scan of the abdomen and pelvis today, at this time with enteral contrast. On this study, he has another short segment intussusception which appears to be in a separate area. The previous one appears to have resolved. There is no obstruction. Review of Systems Constitutional Constitutional: Denies body ache(s), Denies fatigue, Denies fever(s), Denies poor appetite, Denies weakness and Denies weight loss Eyes Eyes: Reports system reviewed and no additional complaints, except as documented ENT Ears, Nose, Mouth, and Throat: Reports system reviewed and no additional complaints, except as documented Cardiovascular Cardiovascular: Denies chest pain and Denies dyspnea Respiratory Respiratory: Denies chest congestion, Denies cough and Denies dyspnea Gastrointestinal Gastrointestinal: Reports abdominal pain, Denies belching, Denies hematochezia, Denies change in bowel habits, Reports diarrhea, Denies nausea and Denies vomiting Genitourinary Genitourinary: Reports system reviewed and no additional complaints, except as documented Musculoskeletal Musculoskeletal: Reports system reviewed and no additional complaints, except as documented Neurologic Neurologic: Reports system reviewed and no additional complaints, except as documented and Denies weakness Endocrine Endocrine: Denies change in body appearance, Denies cold intolerance and Denies fatigue Hematologic/Lymphatic Hematologic/Lymphatic: Denies easy bleeding, Denies easy bruising and Denies lymphadenopathy PFSH All Active Problems (Updated 12/05/22 @ 10:14 by STONEY FRY) Intussusception (Acute) Abdominal pain (Acute) Intussusception (Acute) Eustachian tube dysfunction (Acute) Tobacco abuse (Acute) Testicular disorder (Acute) Medical History (Updated 12/05/22 @ 10:14 by STONEY FRY) Anxiety Depression Family history of testicular cancer Surgical History (Updated 12/05/22 @ 06:45 by Caitlin Ayala DO) No significant past surgical history Social History Smoking/Tobacco Use Status: Current every day Tobacco Type: cigarettes Smoking risk assessment performed?: Yes Alcohol Intake: current Alcohol Intake frequency: a few times a month Drug use: Daily Substance use type: marijuana Do you feel safe at home: Yes Do you feel safe in your relationship?: Yes Exam Const General: cooperative, healthy appearing, comfortable and no acute distress Orientation: alert, awake and oriented x3 Resp Effort & Inspection: normal respiratory effort Auscultation: clear to auscultation bilaterally GI Inspection: normal to inspection Palpation: soft, no guarding, no hernias, no masses and nontender Percussion: normal to percussion Auscultation: normal bowel sounds Results Last Vital Signs Temp 97.5 F L 12/05/22 05:39 Pulse 78 12/05/22 05:39 Resp 18 12/05/22 05:39 BP 120/77 12/05/22 05:39 Pulse Ox 100 12/05/22 05:39 Labs 12/05/22 05:45 12/05/22 05:45 Labs: Laboratory Results - last 24 hr 12/05/22 12/05/22 05:45 05:45 WBC 8.62 RBC 5.25 Hgb 15.7 Hct 46.9 MCV 89 MCH 29.9 MCHC 33.5 RDW 13.0 Plt Count 301 MPV 9.7 Immature Gran % 0.1 Neutrophils % 53.7 Lymphocytes % 36.4 Monocytes % 7.2 Eosinophils % 2.1 Basophils % 0.5 Nucleated RBC % 0.0 Absolute Neutrophils 4.63 Absolute Lymphocytes 3.14 Absolute Monocytes 0.62 Absolute Eosinophils 0.18 Absolute Basophils 0.04 Sodium 140 Potassium 4.4 Chloride 103 Carbon Dioxide 30.9 Anion Gap 6.1 BUN 10 Creatinine 1.0 Est GFR (CKD-EPI 2020) 105.79 Glucose 105 Calcium 9.3 Total Bilirubin 0.2 AST 15 ALT 22 Alkaline Phosphatase 60 Total Protein 7.6 Albumin 4.3 Lipase [address] scan report/results: report reviewed and image reviewed CT scan - pelvis: report reviewed and image reviewed
--- NOTE | 2022-12-05 10:06 | NUR.NOTE ---
surgical consult at bedside
[2022-12-05 10:21] VITALS: BP 112/76; PULSE 81; RESP 18; O2SAT 97
== END 2022-12-05 10:21 | disposition home or self-care (01) ==
PROVIDERS: Physician Assistant; Emergency Provider Student in an Organized Health Care Education/Training Program; PCP Nurse Practitioner Family
DX: K56.1 Intussusception (principal)
CPT/HCPCS: 80053; 83690; 99285; 74177; 85025; 99284; Q9967